=== PATIENT | male | born 1990 | race African-American/Black ===

== ENCOUNTER 2024-03-09 03:15 | Emergency (ER) | payer SELFPAY ==
[~2024-03-09] VITALS: Ht 180.3 cm; Wt 86.0 kg
[2024-03-09 03:17] VITALS: O2SAT 99
[2024-03-09] MEDS ORDERED: HYDROCODONE/ACETAMINOPHEN 5/325MG TABLET PO ONE (04:30)
[2024-03-09] MEDS: HYDROCODONE/ACETAMINOPHEN 5/325MG TABLET PO NR (04:58)
[2024-03-09] MEDS ORDERED: METH-653 MT (05:33)
[2024-03-09] MEDS ORDERED: IBUP-2029 MT (05:33)
[2024-03-09 07:17] VITALS: BP 140/82; PULSE 92; RESP 18; TEMP 36.89184; O2SAT 99
== END 2024-03-09 07:23 | disposition home or self-care (01) ==
LOC: ER 03:25
DX: S20.212A Contusion of left front wall of thorax, initial encounter (principal); Z98.890 Other specified postprocedural states; Y93.67 Activity, basketball; Y92.89 Other specified places as the place of occurrence of the external cause; Y99.8 Other external cause status
CPT/HCPCS: 71101; 99283